=== PATIENT | female | born 1960 | race Caucasian/White ===

== ENCOUNTER 2020-10-03 15:14 | Emergency (ER) | payer SELFPAY ==
[~2020-10-03] VITALS: Ht 167.6 cm; Wt 81.6 kg
[2020-10-03] MEDS ORDERED: AMIODARONE HCL (50 MG/ ML) 3 ML VIAL IV ONE (15:18)
[2020-10-03] MEDS ORDERED: CALCIUM CHLOR(10%) 100MG/ML 10ML SYRINGE IV ONE (15:18)
[2020-10-03] MEDS ORDERED: EPINEPHrine HCL 1 MG/10 ML SYRG IV ONE (15:18)
[2020-10-03] MEDS ORDERED: SODIUM BICARBONATE 8.4% INJ 50ML SYRINGE IV ONE (15:18)
== END 2020-10-03 22:51 | disposition expired ==
LOC: EDBD 15:16 → ER 15:17 → EDBD 15:17 → ER 22:51
DX: I46.9 Cardiac arrest, cause unspecified (principal); J96.01 Acute respiratory failure with hypoxia; I25.10 Atherosclerotic heart disease of native coronary artery without angina pectoris
CPT/HCPCS: 92950; 99285; J0171; J0282